=== PATIENT | male | born 1995 | race Caucasian/White ===

== ENCOUNTER 2022-03-25 04:45 | Emergency (ER) | payer OTHER ==
[~2022-03-25] VITALS: Ht 188 cm; Wt 68.3 kg
[2022-03-25] MEDS: SODIUM CHLORIDE 0.9% 1,000 ML IV ONE (05:51)
[2022-03-25 05:52] LABS: BASOPHILS % 0.5 % (0.0-2.0); HEMATOCRIT. 40.5 % (42.0-52.0); HEMOGLOBIN. 13.8 g/dL (14.0-18.0); LYMPHOCYTES % 25.2 % (20.0-50.0); MEAN CORPUSCULAR HEMOGLOBIN 31.1 pg (28.0-32.0); MEAN CORPUSCULAR VOLUME 91.3 fL (80.0-94.0); MEAN PLATELET VOLUME 10.1 fl (7.4-10.4); MONOCYTES % 6.6 % (2.0-8.0); NEUTROPHILS % 66.7 % (40.0-76.0); PLATELET 182 x1000/uL (130-400); RED BLOOD CELL COUNT 4.44 mill/uL (4.7-6.1); RED CELL DISTRIBUTION WIDTH 13.3 % (11.6-14.6)
[2022-03-25 05:54] LABS: CLARITY URINE CLEAR (CLEAR); COLOR URINE YELLOW (YELLOW); KETONES URINE NEGATIVE (NEGATIVE); LEUKOCYTE ESTERASE URINE NEGATIVE (NEGATIVE); NITRITE URINE NEGATIVE (NEGATIVE); OCCULT BLOOD URINE NEGATIVE (NEGATIVE); PROTEIN URINE NEGATIVE (NEGATIVE); SPECIFIC GRAVITY URINE 1.006 (1.005-1.030); UROBILINOGEN URINE 0.2 E.U./dL (0.2-1.0)
[2022-03-25 05:59] LABS: CHLORIDE 108 mEq/L (98-107)
[2022-03-25 06:07] LABS: PROTHROMBIN TIME 10.7 sec (9.6-11.0)
[2022-03-25] MEDS ORDERED: ONDA4TAB50 PO (08:25)
[2022-03-25 08:30] VITALS: BP 112/60
== END 2022-03-25 08:56 | disposition home or self-care (01) ==
LOC: ER 04:55
DX: R53.1 Weakness (principal)
CPT/HCPCS: 36415; 71045; 80053; 81003; 83605; 84145; 85025; 85610; 87040; 87426; 93005; 96360; 96361; 99285; C9803; J7030